=== PATIENT | male | born 1955 | race Caucasian/White ===

== ENCOUNTER 2016-05-06 17:47 | Emergency (ER) | payer BC ==
--- NOTE | 2016-05-06 18:24 | PHYS DOC ---
Past Medical History Past Medical History: Asthma, DVT, Other Additional Past Medical Histor: PE, enlarged prostate, seasonal allergies Past Surgical History: Appendectomy, Other Additional Past Surgical Histo: L inguinal hernia repair Alcohol Use: Occasionally Drug Use: None Adult General Chief Complaint Chief Complaint: NEAR SYNCOPE [facility] HPI Patient is a 60 year old male who presents by EMS from work at [employer] in [facility] for evaluation of episode of presyncope. He ate lunch and quickly developed crampy abdominal pains followed by watery diarrhea. His symptoms continued this afternoon and he then had an episode of lightheadedness and generalized weakness. He states his vision was narrowing, so he sat down and started to feel better. He was surrounded by other hospital workers and was moved to the emergency department for evaluation. He did not actually check into the emergency department, but he received IV fluids and had labs drawn and had an EKG performed. Dr. Mary, [facility], evaluated him and called to send EKG and lab info. She states troponin is undetectable, d-dimer is negative, CBC and chemistries are unremarkable. He has an EKG that was performed there showing a normal sinus rhythm with interventricular block, rate 78. He is feeling much better after IV fluid administration. He is no longer lightheaded and does not feel he will pass out. He does have some slight crampy abdominal pains and the sensation of impending diarrhea. He denies fever or chills, chest pain, headache, vision changes, numbness, tingling, weakness, bloody stools. Review of Systems Review of Systems Constitutional: Denies fever or chills [] Eyes: Denies change in visual acuity, redness, or eye pain [] HENT: Denies nasal congestion or sore throat [] Respiratory: Denies cough or shortness of breath [] Cardiovascular: No additional information not addressed in HPI [] GI: Denies abdominal pain, nausea, vomiting, bloody stools [] : Denies dysuria or hematuria [] Musculoskeletal: Denies back pain or joint pain [] Integument: Denies rash or skin lesions [] Neurologic: Denies headache, focal weakness or sensory changes [] Endocrine: Denies polyuria or polydipsia [] Allergies Allergies Allergies Coded Allergies Type Severity Reaction Last Updated Verified No Known Drug Allergies 05/06/16 No Physical Exam Physical Exam Constitutional: Well developed, well nourished, no acute distress, non-toxic appearance. [] HENT: Normocephalic, atraumatic, bilateral external ears normal, oropharynx moist, no oral exudates, nose normal. [] Eyes: PERRLA, EOMI. [] Neck: Normal range of motion, supple. [] Cardiovascular:Heart rate regular rhythm [] Lungs & Thorax: Bilateral breath sounds clear to auscultation [] Abdomen: Bowel sounds normal, soft, no tenderness. [] Skin: Warm, dry, no erythema, no rash. [] Back: Normal range of motion. [] Extremities: No tenderness, ROM intact, no edema. [] Neurologic: Alert and oriented X 3, normal motor function, normal sensory function, no focal deficits noted. [] Psychologic: Affect normal, judgement normal, mood normal. [] Current Patient Data Vital Signs Vital Signs Date Time Temp Pulse Resp B/P Pulse Ox O2 Delivery O2 Flow Rate FiO2 05/06/16 18:44 89 16 120/73 97 Room Air 05/06/16 17:50 98.5 98.5 EKG EKG EKG as interpreted by me as normal sinus rhythm, rate 85, no ST-T changes, normal intervals, no ectopy Course & Med Decision Making Course & Med Decision Making Pertinent Labs and Imaging studies reviewed. (See chart for details) Laboratory evaluation from outside facilities unremarkable. His symptoms are improving. He seemed to her with a steady gait. He would like to be discharged this time. Return precautions given. He understands and agrees with plan. Dragon Disclaimer Dragon Disclaimer This electronic medical record was generated, in whole or in part, using a voice recognition dictation system. Departure Departure Impression: Primary Impression: Pre-syncope Disposition: 01 HOME, SELF-CARE Condition: STABLE Patient Instructions: Syncope, [id number] Additional Instructions: Follow-up with your primary care doctor. Return for any concerns. James TERRY MD May 06, 2016 18:24
[2016-05-06 18:44] VITALS: BP 120/73
--- NOTE | 2016-05-07 06:49 | EKG ---
[facility] [address] [place] [address] Test Date: 2016-05-06 Test Time: 17:52:55 Pat Name: VINCENT DEE Department: Room: Gender: M Clerical Transcriber: : [id number] Requested By: James TERRY Order Number: [id number] Reading MD: Fransisca Chinchilla Measurements Intervals [place] Rate: 85 P: 21 PA: 144 QRS: 33 QRSD: 98 T: 13 QT: 378 QTc: 455 Interpretive Statements SINUS RHYTHM QRS(T) CONTOUR ABNORMALITY CONSISTENT WITH ANTEROSEPTAL INFARCT AGE UNDETERMINED ABNORMAL ECG RI6.01 No previous ECG available for comparison Electronically Signed On 05-08-2016 20:07:40 CDT by Fransisca Chinchilla
== END 2016-05-06 18:43 | disposition home or self-care (01) ==
LOC: ER 17:47
DX: R55 Syncope and collapse (principal); R42 Dizziness and giddiness; R10.9 Unspecified abdominal pain; J45.909 Unspecified asthma, uncomplicated; Z86.718 Personal history of other venous thrombosis and embolism; Z90.49 Acquired absence of other specified parts of digestive tract; Z86.711 Personal history of pulmonary embolism
CPT/HCPCS: 93005; 99283-25